=== PATIENT | male | born 1950 | race Hispanic/Latino ===

== ENCOUNTER 2018-04-27 07:23 | Emergency (ER) | payer OTHER, MEDICARE ==
[2018-04-27 07:23] VITALS: BMI 24.4
[2018-04-27 08:06] VITALS: RESP 18; TEMP 97.8
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
[2018-04-27 08:42] VITALS: BP 129/78; PULSE 90; O2SAT 100
== END 2018-04-27 08:36 | disposition home or self-care (01) ==
LOC: ED 07:23
DX: Z04.1 Encounter for examination and observation following transport accident (principal); V43.52XA Car driver injured in collision with other type car in traffic accident, initial encounter; Y92.410 Unspecified street and highway as the place of occurrence of the external cause; E11.9 Type 2 diabetes mellitus without complications